=== PATIENT | male | born 1975 | race Two or more races ===

== ENCOUNTER → 2020-01-06 | Outpatient (CLI) | payer OTHER ==
[~2020-01-06] MED LIST: IOHEXOL 300 MG/ML 100ML BOTTLE IJ ONE
[2020-01-06 09:06] LABS: BUN/Creatinine Ratio 11.1; Calcium 8.5 mg/dL (8.5-10.1); Potassium 4.3 mmol/L (3.5-5.1)
== END | disposition home or self-care (01) ==
LOC: CT 08:15
DX: J38.6 Stenosis of larynx (principal); Z93.0 Tracheostomy status
CPT/HCPCS: 36415; 70491; 80048; Q9967

== ENCOUNTER 2020-05-27 04:32 | Inpatient (IN) | payer OTHER ==
[~2020-05-27] VITALS: Ht 172.7 cm; Wt 106.1 kg
[2020-05-27] MEDS ORDERED: SODIUM CHLORIDE 0.9% 1,000 ML IV ONE ×2 (07:15)
[2020-05-27 07:53] LABS: Basophils # (auto) 0 10 ^3/uL (0-0.2); Basophils % (auto) 0.1 % (0.0-2.0); Eosinophils # (auto) 0 10 ^3/uL (0-0.8); Eosinophils % (auto) 0.3 % (0.0-7.0); Hematocrit 45.2 % (41.0-53.0); Hemoglobin 16.3 g/dL (13.5-17.5); Lymphocytes # (auto) 0.9 10 ^3/uL (0.4-5.4); Lymphocytes % (auto) 11.3 % (10.0-50.0); Mean Corpuscular Hemoglobin 29.4 pg (28.0-32.0); Mean Corpuscular Hgb Conc. 36.1 g/dL (32.0-36.0); Mean Corpuscular Volume 81.4 fL (80.0-100.0); Monocytes # (auto) 0.8 10 ^3/uL (0-1.3); Monocytes % (auto) 9.9 % (0.0-12.0); Neutrophils # (auto) 6.3 10 ^3/uL (1.6-8.6); Neutrophils % (auto) 78.4 % (37.0-80.0); Nucleated Red Blood Cells % 0.1 %; Red Blood Cells 5.55 10^6/uL (4.5-5.90); Red Cell Distribution Width 14.1 % (11.8-14.3); White Blood Cell 8.1 10^3/uL (4.4-10.8)
[2020-05-27 08:11] LABS: Chloride 83 mmol/L (98-107); Potassium 4.2 mmol/L (3.5-5.1)
[2020-05-27 08:22] LABS: Alanine Aminotransferase 65 U/L (16-61); Albumin 4.2 g/dL (3.4-5.0); Alkaline Phosphatase 118 U/L (45-117); Anion Gap 7 (5-15); Aspartate Aminotransferase 145 U/L (15-37); BUN/Creatinine Ratio 13.1; Bilirubin, Total 2.2 mg/dL (0.2-1.0); Blood Urea Nitrogen 11 mg/dL (7-18); Calcium 8.7 mg/dL (8.5-10.1); Carbon Dioxide 27 mmol/L (21-32); GFR African American 127 mL/min; GFR Non-African American 105 mL/min; Glucose 101 mg/dL (74-106); Total Protein 8.1 g/dL (6.4-8.2)
[2020-05-27 08:44] LABS: Sodium 117 mmol/L (136-145)
[2020-05-27] MEDS ORDERED: SODIUM CHL 3% 500 ML IV ONE ×2 (09:00→09:45)
[2020-05-27] MEDS ORDERED: PIPERACILLIN-TAZOB 3.375GM 100 ML IV ONE (09:15)
[2020-05-27 16:12] LABS: Calcium 8.3 mg/dL (8.5-10.1)
[2020-05-27 16:18] LABS: BUN/Creatinine Ratio 11.3; Total Protein 7.6 g/dL (6.4-8.2)
[2020-05-28] MEDS: TEMAZEPAM 15 MG CAP PO PRN ×2 (00:15→22:01)
[2020-05-28 04:57] VITALS: BP 143/86
[2020-05-28 08:12] VITALS: BP 167/84
[2020-05-28 09:51] LABS: Basophils # (auto) 0 10 ^3/uL (0-0.2); Basophils % (auto) 0.3 % (0.0-2.0); Eosinophils # (auto) 0 10 ^3/uL (0-0.8); Eosinophils % (auto) 0.1 % (0.0-7.0); Hematocrit 48.2 % (41.0-53.0); Hemoglobin 16.7 g/dL (13.5-17.5); Lymphocytes % (auto) 14.5 % (10.0-50.0); Mean Corpuscular Hgb Conc. 34.6 g/dL (32.0-36.0); Mean Corpuscular Volume 83.8 fL (80.0-100.0); Monocytes # (auto) 0.8 10 ^3/uL (0-1.3); Neutrophils # (auto) 5.3 10 ^3/uL (1.6-8.6); Neutrophils % (auto) 74.1 % (37.0-80.0); Red Blood Cells 5.75 10^6/uL (4.5-5.90); Red Cell Distribution Width 14.7 % (11.8-14.3); White Blood Cell 7.1 10^3/uL (4.4-10.8)
[2020-05-28 10:11] LABS: Calcium 8.9 mg/dL (8.5-10.1); Potassium 3.7 mmol/L (3.5-5.1)
[2020-05-28 10:14] LABS: BUN/Creatinine Ratio 8.9; Bilirubin, Total 1.1 mg/dL (0.2-1.0); Total Protein 7.8 g/dL (6.4-8.2)
[2020-05-28] MEDS ORDERED: IBUP400T23 PO (10:55)
[2020-05-28] MEDS ORDERED: ONDANSETRON HCL 4 MG/2 ML VIAL IV PRN (13:00)
[2020-05-28] MEDS: D5W/SOD CHL 0.45%/KCL 20MEQ 1,000 ML IV SCH ×2 (14:50→20:51)
[2020-05-28] MEDS ORDERED: IOHEXOL 300 MG/ML 100ML BOTTLE IJ ONE (15:26)
[2020-05-28 16:00] VITALS: BP 168/98
[2020-05-28] MEDS ORDERED: TAMSULOSIN HYDROCHLORIDE 0.4 MG CAP PO SCH (18:00)
[2020-05-29] VITALS: BP 119/77
[2020-05-29] MEDS: D5W/SOD CHL 0.45%/KCL 20MEQ 1,000 ML IV SCH (05:08)
[2020-05-29 07:59] VITALS: BP 140/74
[2020-05-29 10:09] LABS: Albumin 3.5 g/dL (3.4-5.0); Calcium 8.8 mg/dL (8.5-10.1); Potassium 3.6 mmol/L (3.5-5.1)
[2020-05-29 10:12] LABS: BUN/Creatinine Ratio 10.7; Total Protein 6.9 g/dL (6.4-8.2)
[2020-05-31 11:37] LABS: Hepatitis A Ab IgM Negative; Hepatitis B Core IgM Negative; Hepatitis B Surface Antigen Negative (Negative)
[2020-05-31 11:48] LABS: Hepatitis C Antibody Positive (Negative)
== END 2020-05-29 14:55 | DRG 640 ==
LOC: ER 04:32 → EEVIPCON 04:32 → EDBD 04:32 → OVERFLOW 04:33 → WEST WING 05-28 03:33
PROVIDERS: ADMIT Internal Medicine; ATTEND Internal Medicine
DX: E87.1 Hypo-osmolality and hyponatremia (principal); U07.1 COVID-19; J96.10 Chronic respiratory failure, unspecified whether with hypoxia or hypercapnia; N13.30 Unspecified hydronephrosis; R56.9 Unspecified convulsions; N32.89 Other specified disorders of bladder; K80.20 Calculus of gallbladder without cholecystitis without obstruction; E86.0 Dehydration; Z82.49 Family history of ischemic heart disease and other diseases of the circulatory system; Z93.0 Tracheostomy status; Z83.3 Family history of diabetes mellitus
CPT/HCPCS: 31720; 36415; 70450; 71045; 74176; 74178; 78226; 80053; 80074; 84484; 85025; 87081; 87426; 96361; 96365; 99291; G0378; J2543